=== PATIENT | male | born 2000 | race Caucasian/White ===

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

== ENCOUNTER 2024-06-19 17:45 | Emergency (ER) | payer OTHER, SELFPAY ==
[~2024-06-19] VITALS: Ht 175.3 cm; Wt 64.2 kg
[2024-06-19 17:49] VITALS: BP 130/72; TEMP 98; O2SAT 99
== END 2024-06-19 19:10 | disposition left against medical advice (07) ==
LOC: M ED 17:45
DX: Z53.21 Procedure and treatment not carried out due to patient leaving prior to being seen by health care provider (principal)

== ENCOUNTER 2024-11-30 16:35 | Emergency (ER) | payer OTHER ==
[~2024-11-30] VITALS: Ht 172.7 cm; Wt 61.1 kg
[2024-11-30 16:39] VITALS: BP 127/75; TEMP 97; O2SAT 100
[2024-11-30] MEDS: TETANUS/DIPHTH/ACEL. PERTUSSIS 0.5 ML SYR IM.IMMUN ONE (19:43)
[2024-11-30] MEDS ORDERED: CEPH500C PO (20:21)
[2024-11-30] MEDS: CEPHALEXIN 500 MG CAP PO ONE (20:29)
== END 2024-11-30 20:44 | disposition home or self-care (01) ==
LOC: M ED 16:35
DX: S60.561A Insect bite (nonvenomous) of right hand, initial encounter (principal); F12.10 Cannabis abuse, uncomplicated; Z79.2 Long term (current) use of antibiotics; Z23 Encounter for immunization; Y93.89 Activity, other specified; Y92.9 Unspecified place or not applicable